=== PATIENT | female | born 1970 | race Caucasian/White ===

== ENCOUNTER 2018-05-19 13:59 | Emergency (ER) | payer OTHER ==
[~2018-05-19] VITALS: Ht 167.6 cm; Wt 94.5 kg
[2018-05-19] MEDS ORDERED: NORCO 5/3251 TABLET PO (15:38)
[2018-05-19] MEDS ORDERED: SEROQUEL100 MG PO (16:27)
[2018-05-19 17:16] VITALS: BP 116/74
== END 2018-05-19 17:16 | disposition home or self-care (01) ==
LOC: EME 13:59
DX: S92.321A Displaced fracture of second metatarsal bone, right foot, initial encounter for closed fracture (principal); F31.31 Bipolar disorder, current episode depressed, mild; W22.8XXA Striking against or struck by other objects, initial encounter
CPT/HCPCS: 73630; 90839; 99281; 99284

== ENCOUNTER 2018-05-27 16:19 | Emergency (ER) | payer SELFPAY ==
[~2018-05-27] VITALS: Ht 167.6 cm; Wt 96.1 kg
[~2018-05-27 16:19] MED LIST: NORCO 5/3251 TABLET PO; SEROQUEL100 MG PO
[2018-05-27] MEDS ORDERED: PREDNISONE5 MG PO (18:12)
[2018-05-27 18:47] VITALS: BP 120/89
== END 2018-05-27 18:47 | disposition home or self-care (01) ==
LOC: RME 16:19 → EME 16:19 → RME 18:47
DX: R21 Rash and other nonspecific skin eruption (principal); F32.9 Major depressive disorder, single episode, unspecified; F17.200 Nicotine dependence, unspecified, uncomplicated
CPT/HCPCS: 99281; 99284; J7512